=== PATIENT | male | born 1995 ===

== ENCOUNTER 2022-02-05 22:02 | Emergency (ER) | payer SELFPAY ==
[2022-02-06] MEDS ORDERED: Ibuprofen 600 MG Tab PO ONE ×2 (00:16→00:18)
== END 2022-02-06 00:27 | disposition left against medical advice (07) ==
LOC: DL.ED 22:02
DX: S83.91XA Sprain of unspecified site of right knee, initial encounter (principal); X50.1XXA Overexertion from prolonged static or awkward postures, initial encounter
CPT/HCPCS: 73562-RT; 99283-25; A9270-GY